=== PATIENT | male | born 1980 | race Hispanic/Latino ===

== ENCOUNTER 2016-11-14 08:41 | Emergency (ER) | payer SELFPAY ==
[~2016-11-14] VITALS: Ht 170.2 cm; Wt 86.0 kg
[2016-11-14] MEDS ORDERED: LIDOCAINE 2% (XYLOCAINE) 20 ML VIAL INJ ONE (09:10)
[2016-11-14] MEDS ORDERED: HYDROcodone/APAP 5 MG/325 MG (NORCO) TAB PO ONE (09:10)
[2016-11-14] MEDS ORDERED: TETANUS, DIPTHERIA, PERTUSSIS (ADACELL) VACCINE 0.5 ML VIAL IM ONE (09:10)
[2016-11-14] MEDS ORDERED: MUPIROCIN 2% OINT 22 GM (BACTROBAN) TUBE TOP ONE (09:10)
[2016-11-14] MEDS ORDERED: BACITRACIN OINTMENT 0.9 GM PACKET TOP ONE (09:15)
[2016-11-14] MEDS ORDERED: FEXO180T84 PO (09:32)
--- NOTE | 2016-11-14 09:40 | Diagnostic Imaging Report ---
INDICATION: Right hand pain post solid or injury. EXAM: AP, oblique, and lateral views of the right hand are obtained. FINDINGS: No fracture or acute bony abnormality is seen. IMPRESSION: Negative right hand. Dictated by: Dictated on workstation # [id number]
[2016-11-14 10:03] VITALS: BP 142/90
[2016-11-14] MEDS ORDERED: NAPR500T8 PO (10:11)
== END 2016-11-14 10:21 | disposition home or self-care (01) ==
LOC: ED 08:46
DX: S61.310A Laceration without foreign body of right index finger with damage to nail, initial encounter (principal); S61.212A Laceration without foreign body of right middle finger without damage to nail, initial encounter; W29.8XXA Contact with other powered hand tools and household machinery, initial encounter
CPT/HCPCS: 12002; 73130; 90471; 90715; 99283; J2001; 11750; 12042